=== PATIENT | female | born 1980 | race Two or more races ===

== ENCOUNTER 2016-06-28 02:46 | Inpatient (IN) | payer SELFPAY ==
[~2016-06-28] VITALS: Ht 152.4 cm; Wt 73.0 kg
[2016-06-28] MEDS ORDERED: FENTANYL PF 100 MCG/2 ML VIAL. IV PRN (03:15)
[2016-06-28] MEDS ORDERED: ONDANSETRON PF 4 MG/2 ML VIAL. IV PRN (03:15)
[2016-06-28] MEDS ORDERED: TERBUTALINE 1 MG/ML VIAL. SQ PRN (03:15)
[2016-06-28] MEDS ORDERED: IV RINGERS,LACTATED 1000ML 1,000 ML IV SCH (03:15)
[2016-06-28] MEDS ORDERED: LIDOCAINE 1% PF 30 ML VIAL. INJ PRN (03:15)
[2016-06-28] MEDS ORDERED: OXYTOCIN 30 UNIT/500 ML PREMIX 500 ML IV PRN ×2 (03:15)
[2016-06-28] MEDS ORDERED: BUTORPHANOL 2 MG VIAL. IV PRN (03:15)
[2016-06-28] MEDS ORDERED: 0.9 % SODIUM CHLORIDE 10 ML DISP.SYRIN. IV PRN (03:15)
[2016-06-28 03:41] LABS: HEMATOCRIT 33.9 % (36.0-47.0); HEMOGLOBIN 10.6 g/dL (12.0-15.5); RED BLOOD COUNT 4.43 x10^6/uL (3.50-5.40); RED CELL DISTRIBUTION WIDTH 17.7 % (11.5-14.5); WHITE BLOOD COUNT 13.2 x10^3/uL (4.0-11.0)
--- NOTE | 2016-06-28 03:46 | PDOC1 ---
OB - History Hx of Present Ultrasounds: Normal mid trimester US Obstetrical Complications: None Medical Complications: None Past Family/Social History * Past Medical, Surgical, Family and Obstetric Histories reviewed from chart. Rubella: Immune RPR/VDRL: Negative GBS Status: Negative HBsAG: Negative OB - Chief Complaint & HPI Date of Admission: Date of Admission: Jun 28, 2016 at 02:46 Chief Complaint/History : 4 Para: 3 EDC: Jun 09, 2016 Reason for admission: active labor Problems: OB - Admission Exam Physical Exam HEENT: Normal, Nasal Mucosa Normal, Oropharynx Normal, Moist Membranes, Fontanelles Normal Heart: Regular Rate Lungs: Clear, Equal Abdomen: Gravid Extremities: Normal Pulses, No tenderness or swelling Reflexes: Normal Cervical Dilatation: 8cm Effacement: 100% Station: -1 Membranes: Intact Amniotic Fluid: Meconium Heart Rate: Normal Accelerations: Accelerations Present Short Term Variability: Present Assessment/Plan Assessment/Plan [facility] JAMEY LARA MD Jun 28, 2016 03:46
[2016-06-28 04:21] LABS: ALBUMIN 2.6 g/dL (3.4-5.0); ALBUMIN/GLOBULIN RATIO 0.7 (1.0-1.7); CALCIUM 8.9 mg/dL (8.5-10.1); CREATININE 0.6 mg/dL (0.6-1.0); GFR 113.8; TOTAL BILIRUBIN 0.3 mg/dL (0.2-1.0); TOTAL PROTEIN 6.4 g/dL (6.4-8.2)
--- NOTE | 2016-06-28 05:02 | PDOC ---
VAGINAL DELIVERY DATE DATE: 06/28/16 TIME: 05:00 : 4 Para: 2 EDC: Jun 11, 2016 VAGINAL DELIVERY: VTX VACCUM ASSISTED: No PLACENTA: Spontaneous 8/9/9 WEIGHT W8/9 Nuchal Cord: No Amniotic Fluid: Clear PAIN: Local EPISIOTOMY: No EXTENSION: No EBL 300cc COMPLICATIONS none CONDITION Stable Signs of Intrauterine Infectio: None Shoulder Dystocia: No DIAGNOSIS [facility] Problems: JAMEY LARA MD Jun 28, 2016 05:02
[2016-06-28 08:15] VITALS: BP 110/74
[2016-06-28 09:40] VITALS: BP 108/66
[2016-06-28] MEDS ORDERED: BENZOCAINE 20% TOPICAL AEROSOL SPRAY 57GM CAN. TP PRN (11:00)
[2016-06-28 14:37] VITALS: BP 110/60
[2016-06-28 21:00] VITALS: BP 118/56
[2016-06-29 01:00] VITALS: BP 121/59
[2016-06-29] MEDS: IBUPROFEN 600 MG TABLET. PO PRN ×2 (05:33→20:23)
[2016-06-29 05:42] VITALS: BP 122/72
--- NOTE | 2016-06-29 08:09 | PDOC ---
SUBJECTIVE Subjective Feeling good No Problems OBJECTIVE Objective Vital signs stable Uterus firm Vital Signs Vital Signs Date Time Temp Pulse Resp B/P Pulse Ox O2 Delivery O2 Flow Rate FiO2 06/29/16 05:42 97.7 88 20 122/72 Room Air 97.7 06/29/16 01:00 98.1 83 20 121/59 Room Air 98.1 06/28/16 21:00 98.4 85 20 118/56 98.4 06/28/16 14:37 98.1 89 18 110/60 98.1 06/28/16 09:40 82 18 108/66 06/28/16 08:15 98.2 66 20 110/74 98 98.2 I & O Intake and Output 06/29/16 07:00 Intake Total 340 ml Balance 340 ml Intake Oral 340 ml # Voids 3 PHYSICAL EXAM Physical Exam No fever Lochia normal ASSESSMENT/PLAN Assessment/Plan Patient wants to go home Will see her in 6 weeks in office Problems: AMINATA DUARTE MD Jun 29, 2016 08:09
[2016-06-29] MEDS ORDERED: DIPHTH,PERTUSS(ACELL),TET TOX 0.5 ML DISP.SYRIN. VAX IM ONE (08:30)
[2016-06-29 11:10] VITALS: BP 122/62
[2016-06-29 17:53] VITALS: BP 119/75
[2016-06-29 22:48] VITALS: BP 119/56
[2016-06-30 05:20] VITALS: BP 121/66
[2016-06-30] MEDS: IBUPROFEN 600 MG TABLET. PO PRN (08:29)
[2016-06-30 10:51] VITALS: BP 121/61
[2016-06-30 13:55] VITALS: BP 124/74
== END 2016-06-30 14:50 | disposition home or self-care (01) | DRG 775 ==
LOC: OBSVTOIN 02:46 → 3 SO LND 02:46 → CVICU 03:51 → 3 SO LND 03:52 → 3 NORTH 08:15
PROVIDERS: ADMIT Obstetrics & Gynecology; ATTEND Obstetrics & Gynecology
PROC: 10E0XZZ Delivery of Products of Conception, External Approach (ICD-10-PCS; principal; 2016-06-28)
DX: O77.0 Labor and delivery complicated by meconium in amniotic fluid (principal); Z3A.40 40 weeks gestation of pregnancy; Z37.0 Single live birth
CPT/HCPCS: 36415; 80053; 85027; 86593; 86850; 86900; 86901; 90715; J2590; J7120